=== PATIENT | male | born 1975 | race Caucasian/White ===

== ENCOUNTER 2022-06-10 09:00 | Emergency (ER) | payer BC ==
[~2022-06-10] VITALS: Ht 175.3 cm; Wt 108.6 kg
[2022-06-10] MEDS ORDERED: IOHEXOL-350 100 ML BOTTLE ONE (09:39)
[2022-06-10 10:06] LABS: BASOPHILS % 0.7 % (0.0-2.0); HEMATOCRIT. 43.6 % (42.0-52.0); HEMOGLOBIN. 15.3 g/dL (14.0-18.0); LYMPHOCYTES % 23.8 % (20.0-50.0); MEAN CORPUSCULAR HEMOGLOBIN 32.2 pg (28.0-32.0); MEAN CORPUSCULAR VOLUME 91.8 fL (80.0-94.0); MEAN PLATELET VOLUME 7.5 fl (7.4-10.4); MONOCYTES % 5.6 % (2.0-8.0); NEUTROPHILS % 68.9 % (40.0-76.0); PLATELET 248 x1000/uL (130-400); RED BLOOD CELL COUNT 4.75 mill/uL (4.7-6.1)
[2022-06-10 10:07] LABS: CHLORIDE 103 mEq/L (98-107)
[2022-06-10] MEDS: ASPIRIN 325MG EC TABLET PO ONE ×2 (10:10→10:14)
[2022-06-10] MEDS ORDERED: CLOPIDOGREL 75MG TABLET PO ONE (10:15)
[2022-06-10 10:18] LABS: ETHANOL BLOOD < 10 mg/dL
[2022-06-10] MEDS ORDERED: NA PHOS,M-B/NA PHOS,DI-BA ENEMA 118ML PR PRN (11:30)
[2022-06-10] MEDS ORDERED: IPRATROPIUM/ALBUTEROL 0.5-3(2.5)MG/3ML NEB HHN PRN (11:30)
[2022-06-10] MEDS ORDERED: MAGNESIUM/ALUMINUM HYDROXIDE/SIMETHICONE 30ML UDC PO PRN (11:30)
[2022-06-10] MEDS ORDERED: METOPROLOL TARTRATE 25MG TABLET PO SCH (11:30)
[2022-06-10] MEDS ORDERED: ENOXAPARIN 30MG/0.3ML SYR SUBCUT SCH (11:30)
[2022-06-10] MEDS ORDERED: CLONIDINE 0.1MG TABLET PO PRN (11:30)
[2022-06-10] MEDS ORDERED: GUAIFENESIN 200MG/10ML SUGAR FREE UDC PO PRN (11:30)
[2022-06-10] MEDS ORDERED: FAMOTIDINE 20MG TABLET PO NR (11:30)
[2022-06-10] MEDS ORDERED: ACETAMINOPHEN 650MG/20.3ML UDC GT PRN (11:30)
[2022-06-10] MEDS ORDERED: ENOXAPARIN 40MG/0.4ML SYR SUBCUT SCH (11:30)
[2022-06-10] MEDS ORDERED: ONDANSETRON HCL 4MG/2ML INJ IV PRN (11:30)
[2022-06-10] MEDS ORDERED: MVI, ADULT NO.1 10 ML, FOLIC ACID 1 MG, THIAMINE HCL 100 MG in SODIUM CHLORIDE 0.9% 1,0... IV ONE ×4 (12:30)
[2022-06-10 13:07] LABS: PROTHROMBIN TIME 10.6 sec (9.6-11.0)
[2022-06-10 13:31] VITALS: BP 154/91
[2022-06-10] MEDS ORDERED: ATORVASTATIN CALCIUM 40MG TABLET PO SCH (21:00)
[2022-06-10] MEDS ORDERED: ATORVASTATIN CALCIUM 20MG TABLET PO SCH (21:00)
[2022-06-11] MEDS ORDERED: ASPIRIN 81MG EC TABLET PO SCH (09:00)
[2022-06-11] MEDS ORDERED: CLOPIDOGREL 75MG TABLET PO SCH (09:00)
== END 2022-06-10 14:12 | disposition left against medical advice (07) ==
LOC: ER 09:00 → EDBEDREQ 11:16 → EDBEDREQTM 11:16 → EDBEDREQSVC 11:16 → ER 14:12 → CANBEDREQ 14:14
DX: G45.9 Transient cerebral ischemic attack, unspecified (principal); R47.81 Slurred speech; R42 Dizziness and giddiness; I10 Essential (primary) hypertension; Z86.73 Personal history of transient ischemic attack (TIA), and cerebral infarction without residual deficits; Z88.0 Allergy status to penicillin
CPT/HCPCS: 36415; 70450; 70496; 70498; 71045; 80053; 80320; 85025; 85610; 93005; 93970; 96372; 99291; J1650; J3411; J3490; J7030; Q9967; G0480